=== PATIENT | female | born 1945 | race Caucasian/White ===

== ENCOUNTER → 2017-07-22 08:09 | Outpatient (CLI) | payer MEDICARE, OTHER, SELFPAY ==
--- NOTE | 2017-07-22 | DI.MRI.S_ITS ---
PROCEDURE: MR KNEE RT WO CON INDICATIONS: Right knee medial meniscus tear TECHNIQUE: Noncontrast sagittal PD fast spin echo and T2 fast spin echo with fat saturation, sagittal 3-D FLASH with fat saturation; coronal T1 spin echo and PD fast spin echo with fat saturation, and axial PD fast spin echo with fat saturation through the knee. COMPARISON: [facility], CR, XR KNEE RT 3V, 07/03/2017, 14:13. FINDINGS: Image quality: Excellent. Menisci: Amorphous high signal intensity within the lateral meniscal body is present, with inferior articular surface extension, indicating degenerative tearing. Medial meniscus demonstrates intrameniscal amorphous high signal intensity within the body and posterior horn, without articular surface extension, consistent with degeneration. Cruciate ligaments: The anterior and posterior cruciate ligaments appear intact. Medial structures: The medial collateral ligament appears intact. The posterior oblique ligament, semimembranosus tendon insertions, oblique popliteal ligament, and meniscocapsular junction appear intact. Visualized portions of the pes anserinus tendons appear normal. No abnormal bursal fluid. Lateral structures: The lateral collateral ligament, long and short heads of the biceps femoris tendon appear intact. The popliteus tendon appears normal; the popliteofibular ligament appears intact. The posterosuperior and anteroinferior popliteomeniscal fascicles appear intact. The arcuate and fabellofibular ligaments appear intact, on either side of the lateral inferior geniculate artery. Iliotibial band appears normal. Anterior structures: The quadriceps and patellar tendons appear intact. Patellar alignment is normal. No femoral trochlear dysplasia or ventral trochlear prominence. No edema in the infrapatellar fat pad. Bones and cartilage: No bone marrow contusions or fractures. There is no MRI correlate for the region of cortical irregularity involving the medial femoral trochlea, nor the adjacent patella, seen by plain film examination. Severe diffuse articular cartilage loss overlies the medial and lateral patellar facets. Intraosseous ganglia within the lateral patellar facet are present. Joint space: There is physiologic knee joint fluid. Trace Johnson's cyst. Normal appearing synovial plicae are incidentally noted. IMPRESSION: 1. No MRI correlate for the region of cortical irregularity involving the medial femoral trochlea, nor the adjacent patella. 2. Patellofemoral compartment osteoarthritis with associated articular cartilage loss. 3. Trace Johnson's cyst. 4. Degenerative tearing of lateral meniscus. Dictated by: Brice Orozco M.D. on 07/22/2017 at 10:32 Approved by: Brice Orozco M.D. on 07/22/2017 at 10:40
== END ==
PROVIDERS: Family Provider Internal Medicine; PCP Internal Medicine; Visit Provider Orthopaedic Surgery
DX: M17.11 Unilateral primary osteoarthritis, right knee (principal); M71.21 Synovial cyst of popliteal space [Baker], right knee
CPT/HCPCS: 73721

== ENCOUNTER → 2017-11-12 08:10 | Outpatient (CLI) | payer MEDICARE, OTHER, SELFPAY ==
[2017-11-12 09:13] LABS: Add Manual Diff / Slide Review NO; Basophils Percent Auto 0.7 % (0-2); Eosinophils Percent Auto 2.8 % (2-4); Hematocrit 41.3 % (36-46); Hemoglobin 14.3 g/dL (12.0-16.0); Lymphocytes Percent Auto 36.7 % (25-40); Mean Corpuscular HGB Conc 34.7 % (30-36); Mean Corpuscular Hemoglobin 32.6 PG (26-34); Monocytes Percent Auto 5.9 % (3-14); Neutrophils Absolute Auto 2900 /uL (3000-5900); Neutrophils Percent Auto 53.9 % (50-75); Platelet Count 237 X10^3/uL (150-400); Red Blood Cell Count 4.39 X10^6/uL (4.0-5.2); Red Cell Distribution Width 13.4 % (11.6-14.8); White Blood Cell Count 5.4 X10^3/uL (4.5-11.0)
[2017-11-12 09:19] LABS: Alanine Aminotransferase 30 IU/L (9-52); Albumin 4.6 g/dL (3.5-5.0); Albumin Globulin Ratio 1.8 (1.0-2.8); Alkaline Phosphatase 63 U/L (38-126); Aspartate Aminotransferase 24 IU/L (14-36); BUN Creatinine Ratio 17.5 (6-22); Bilirubin Total 0.8 mg/dL (0.2-1.3); Blood Urea Nitrogen 14 mg/dL (7-17); Calcium 9.7 mg/dL (8.4-10.2); Carbon Dioxide 27 mmol/L (22-32); Chloride 106 mmol/L (98-107); Cholesterol 256 mg/dL (140-199); Estimated Glomerular Filt Rate > 60.0 mL/min (>60); Globulin 2.6 g/dL (1.7-4.1); Glucose 107 mg/dL (80-110); HDL Cholesterol 59 mg/dL (40-60); HEMOLYSIS < 15 (0-50); LDL Cholesterol Calculated 174 mg/dL (<100); Sodium 145 mmol/L (137-145); Total Protein 7.2 g/dL (6.3-8.2); Triglycerides 117 mg/dL (35-150)
[2017-11-12 09:23] LABS: C-Reactive Protein Quant < 0.5 mg/dL (<1.0)
[2017-11-12 09:24] LABS: Rheumatoid Factor < 8.6 IU/mL (<12.0)
[2017-11-12 09:39] LABS: Erythrocyte Sedimentation Rate 3 MM/HR (0-20)
[2017-11-12 10:00] LABS: Thyroid Stimulating Hormone 1.27 uIU/mL (0.47-4.68)
[2017-11-14 17:23] LABS: ANA Screen, IFA Negative (Negative)
[2017-11-15 10:05] LABS: Arsenic 10 mcg/L (< 23); Lead, Blood 2 mcg/dL (< 5)
[2017-11-18 12:57] LABS: Mercury, Blood < 2
== END ==
PROVIDERS: PCP Internal Medicine; Visit Provider Internal Medicine
DX: R03.0 Elevated blood-pressure reading, without diagnosis of hypertension (principal); R29.898 Other symptoms and signs involving the musculoskeletal system; Z86.69 Personal history of other diseases of the nervous system and sense organs
CPT/HCPCS: 36415; 80053; 80061; 83825; 84443; 85025; 85651; 86038; 86140; 86430

== ENCOUNTER → 2017-12-02 09:29 | Outpatient (CLI) | payer MEDICARE, OTHER, SELFPAY ==
--- NOTE | 2017-12-02 | DI.MG.S_ITS ---
BILATERAL DIGITAL SCREENING MAMMOGRAM 3D/2D WITH CAD: 12/02/2017 CLINICAL: Routine screening. Family history of breast cancer. Comparison is made to exams dated: 11/21/2016 mammogram, 07/05/2015 mammogram, and 04/26/2014 mammogram - [facility]. There are scattered fibroglandular elements in both breasts. Current study was also evaluated with a Computer Aided Detection (CAD) system. No significant masses, calcifications, or other findings are seen in either breast. There has been no significant interval change. IMPRESSION: NEGATIVE There is no mammographic evidence of malignancy. A 1 year screening mammogram is recommended.(12/03/2018) This exam was interpreted at Station ID: [id number]. NOTE: For mammograms, a report in lay terms will be sent to the patient. Approximately 15% of breast malignancies will not be visualized mammographically. In the management of a palpable breast mass, a negative mammogram must not discourage biopsy of a clinically suspicious lesion. Electronically Signed By: Sebastian trujillo/maurice:12/02/2017 11:03:35 letter sent: Normal Exam ACR BI-RADS Category 1: Negative 3341F
== END ==
PROVIDERS: Family Provider Internal Medicine; PCP Internal Medicine; Visit Provider Internal Medicine
DX: Z12.31 Encounter for screening mammogram for malignant neoplasm of breast (principal); Z80.3 Family history of malignant neoplasm of breast
CPT/HCPCS: 77063; 77067

== ENCOUNTER → 2018-03-03 15:14 | Outpatient (CLI) | payer MEDICARE, OTHER, SELFPAY ==
--- NOTE | 2018-03-03 | DI.RAD.S_ITS ---
PROCEDURE: XR LUMBAR SPINE 2-3V INDICATIONS: CERVICAL STENOSIS TECHNIQUE: 3 views of the lumbar spine were acquired. COMPARISON: [facility], CT, ABDOMEN W AND WO PELVIS W, 05/04/2014, 11:41. [facility], CR, THORACIC SPINE 3 VIEWS, 11/30/2009, 10:22. FINDINGS: Bones: 5 [id number] vertebrae are present. Suspected transitional S1 with prominent S1-S2 disc. There is mild levocurvature. No vertebral body compression fractures. No suspicious bony lesions. Degenerative disc disease is present, moderate to severe at T12-L1, mild at L1-L2, L2-L3, L5 and L5 and L5-S1. There is a cyst also posi at L4-L5 and L5-S1. Soft tissues: Overlying bowel gas pattern is normal. No suspicious soft tissue calcifications. There are multiple gallstones. IMPRESSION: 1. Suspect transitional anatomy with prominent S1-S2 disc. 2. Degenerative disc and facet disease. 3. Cholelithiasis. Dictated by: Yosef Lynch M.D. on 03/03/2018 at 17:17 Approved by: Yosef Lynch M.D. on 03/03/2018 at 17:21
--- NOTE | 2018-03-03 | DI.RAD.S_ITS ---
PROCEDURE: XR CERVICAL SPINE 2V OR 3V INDICATIONS: CERVICAL STENOSIS TECHNIQUE: 3 view(s) of the cervical spine were acquired. COMPARISON: [facility], , THORACIC SPINE 3 VIEWS, 11/30/2009, 10:22. FINDINGS: Bones: No fractures or dislocations to the C7 level. Odontoid view is suboptimal. No suspicious bony lesions. There is moderate degenerative disc disease at C3-C4, C4-C5, C5-C6 and C6-C7. Bilateral facet arthropathy, severe at C3-C4 and C4-C5 on the left, [id number] at multiple other levels. Soft tissues: No prevertebral soft tissue swelling. IMPRESSION: Degenerative disc and facet disease in cervical spine as described. Dictated by: Yosef Lynch M.D. on 03/03/2018 at 17:36 Approved by: Yosef Lynch M.D. on 03/03/2018 at 17:38
== END ==
PROVIDERS: Family Provider Internal Medicine; PCP Internal Medicine; Visit Provider Family Medicine
DX: M48.02 Spinal stenosis, cervical region (principal); M51.36 Other intervertebral disc degeneration, lumbar region; K80.20 Calculus of gallbladder without cholecystitis without obstruction; M50.31 Other cervical disc degeneration, high cervical region; M47.812 Spondylosis without myelopathy or radiculopathy, cervical region
CPT/HCPCS: 72040; 72100

== ENCOUNTER → 2018-04-29 10:17 | Outpatient (CLI) | payer MEDICARE, OTHER, SELFPAY ==
[2018-04-29 11:33] LABS: Creatine Kinase 102 U/L (30-135)
[2018-04-29 11:34] LABS: C-Reactive Protein Quant < 0.5 mg/dL (<1.0)
[2018-04-29 12:07] LABS: Thyroid Stimulating Hormone 0.76 uIU/mL (0.47-4.68)
== END ==
PROVIDERS: Family Provider Internal Medicine; PCP Internal Medicine; Visit Provider Physical Medicine & Rehabilitation
DX: R53.1 Weakness (principal); M25.561 Pain in right knee
CPT/HCPCS: 36415; 82550; 84443; 86140

== ENCOUNTER → 2018-05-28 13:39 | Outpatient (CLI) | payer MEDICARE, OTHER, SELFPAY ==
--- NOTE | 2018-05-28 | DI.MRI.S_ITS ---
PROCEDURE: MR STROKE Pre- and post-contrast brain MRI, non-contrast brain MR angiogram, pre- and postcontrast neck MR angiogram INDICATIONS: BILATERAL LEG WEAKNESS TECHNIQUE: Brain: Noncontrast axial T1 spin echo, axial T2 fast spin echo, sagittal and axial FLAIR, coronal T2 fast spin echo, axial gradient echo, axial diffusion and ADC through the brain. After the administration of contrast, axial 3D VIBE of the cranial vasculature and brain. Brain MRA: Non-contrast 3-D time of flight MR angiogram, with multiple swypfet-bzigeoqcu-qypiprmzbx (MIP) reformats performed. Neck MRA: Axial and sagittal TruFISP through the neck. Coronal dynamic MR angiogram during administration of contrast in the arterial and venous phases, with 3-dimenstional pjnmwuk-hjspygdlq-mqzjjwnrzo (MIP) reformats constructed from subtraction images. COMPARISON: None. FINDINGS: Image quality: Excellent. BRAIN: CSF spaces: Ventricles are normal in size and shape. Basal cisterns are patent. No extra-axial fluid collections. Brain: No intracranial bleeds or mass effects. Barth-white matter interface is normal. Brain parenchymal volume loss can be seen. Scattered foci of T2 and hyperintensity can be seen within the periventricular and deep white matter. Diffusion weighted images show no acute ischemic insults. Brainstem appears normal. Normal intravascular flow voids are present. No abnormal intracranial enhancement. Skull and face: Calvarial marrow signal is normal. Orbits appear normal. Sinuses: Sinuses and mastoids are clear. 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 BRAIN MR ANGIOGRAM: Anterior circulation: Intracranial internal carotid arteries are normal in size and enhancement. The flow within the paired anterior cerebral arteries is normal and symmetric. The flow within the middle cerebral arteries is normal and symmetric. The anterior communicating artery is seen. No stenoses, occlusions, or aneurysms. Posterior circulation: The visualized portions of the vertebral arteries demonstrate normal caliber, and join to form a normal appearing basilar artery. There is a prominent left posterior communicating artery seen, with an accompanying diminutive left P1 segment. This is attributed to a type origin of the left posterior cerebral artery, which is considered to be a normal developmental variant of typically no clinical consequence. The flow within the posterior cerebral arteries is normal and symmetric. No stenoses, occlusions, or aneurysms. NECK MR ANGIOGRAM: Carotids: Incidental note is made of a common origin of the right brachiocephalic artery and the left common carotid artery (bovine type arch). This is considered to be a developmental variant of no clinical consequence. The origins of the common carotid arteries appear patent. The calibers and courses of both common carotid arteries are normal. The bifurcation regions appear normal bilaterally. The internal carotid arteries demonstrate normal course and caliber. Posterior circulation: The origins of the vertebral arteries appear patent. More superior portions of both vertebral arteries demonstrate normal course and caliber, and join to form a normal appearing basilar artery. Miscellaneous: Subclavian arteries appear patent. Pre-contrast images through the neck show no soft tissue abnormalities. IMPRESSION: BRAIN MRI: No findings of acute or subacute infarction can be seen. Note is made of age-appropriate brain parenchymal volume loss and chronic small vessel ischemic changes. BRAIN MR ANGIOGRAM: No significant intracranial arterial abnormality is seen. NECK MR ANGIOGRAM: Within the arteries of the neck, no hemodynamically significant stenosis can be seen. Bovine type aortic branching pattern incidentally noted. Dictated by: Selvin Queen M.D. on 05/28/2018 at 14:14 Approved by: Selvin Queen M.D. on 05/28/2018 at 14:18
== END ==
PROVIDERS: Family Provider Internal Medicine; PCP Internal Medicine; Visit Provider Internal Medicine
DX: R29.898 Other symptoms and signs involving the musculoskeletal system (principal)
CPT/HCPCS: 70553; A9579

== ENCOUNTER → 2018-12-16 17:25 | Outpatient (CLI) | payer MEDICARE, OTHER, SELFPAY ==
--- NOTE | 2018-12-16 | DI.MG.S_ITS ---
BILATERAL DIGITAL SCREENING MAMMOGRAM 3D/2D WITH CAD: 12/16/2018 CLINICAL: Routine screening. Family history of breast cancer. Comparison is made to exams dated: 12/02/2017 mammogram, 11/21/2016 mammogram, 07/05/2015 mammogram, 04/26/2014 mammogram, 03/30/2013 mammogram, and 03/01/2012 mammogram - [facility]. The tissue of both breasts is heterogeneously dense. This may lower the sensitivity of mammography. Current study was also evaluated with a Computer Aided Detection (CAD) system. No significant masses, calcifications, or other findings are seen in either breast. There has been no significant interval change. IMPRESSION: NEGATIVE There is no mammographic evidence of malignancy. A 1 year screening mammogram is recommended. This exam was interpreted at Station ID: [id number]. NOTE: For mammograms, a report in lay terms will be sent to the patient. Approximately 15% of breast malignancies will not be visualized mammographically. In the management of a palpable breast mass, a negative mammogram must not discourage biopsy of a clinically suspicious lesion. Electronically Signed By: Damion neri/maurice:12/17/2018 19:27:18 letter sent: Normal Exam ACR BI-RADS Category 1: Negative 3341F
== END ==
PROVIDERS: Family Provider Internal Medicine; PCP Internal Medicine; Visit Provider Internal Medicine
DX: Z12.31 Encounter for screening mammogram for malignant neoplasm of breast (principal); Z80.3 Family history of malignant neoplasm of breast
CPT/HCPCS: 77063; 77067

== ENCOUNTER → 2019-08-14 14:43 | Outpatient (CLI) | payer MEDICARE, OTHER, SELFPAY ==
[2019-08-15 09:02] LABS: COVID19 Sendout NOT DETECTED (Not Detect)
== END ==
PROVIDERS: Family Provider Internal Medicine; PCP Internal Medicine; Visit Provider Physician Assistant
DX: Z01.818 Encounter for other preprocedural examination (principal)
CPT/HCPCS: 87635

== ENCOUNTER 2019-08-17 06:31 | Day surgery (SDC) | payer MEDICARE, OTHER, SELFPAY ==
--- NOTE | 2019-08-16 19:12 | PM.PREOP ---
Pre-operative Note COVID-19 COVID-19 status: Negative Interval Note History & Physical reviewed/Exam performed by Physician: Yes Changes to H&P: No
[2019-08-17] MEDS: PROPARACAINE 0.5% OPHTH SOL 2 DROPS EYE-OP (07:13)
[2019-08-17] MEDS: CATARACT EYE COMPOUND (10 DROPS/SYRINGE) 3 DROPS EYE-OP (07:15)
[2019-08-17 07:16] VITALS: BP 153/87; PULSE 72; RESP 14; TEMP 36.4; O2SAT 97; BMI 28.3
--- NOTE | 2019-08-17 07:20 | PM.OP.1 ---
Operative Date/Time/Diagnoses Date of procedure: 08/17/19 Time of procedure: 07:45 Procedure & Clinicians Procedure: Preoperative diagnoses: 1. Advanced nuclear sclerotic and cortical cataract 2. Astigmatism which is to be corrected with a toric intraocular lens implant. 3. Hypertension 4. 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 Cataract removal with phacoemulsification with toric posterior chamber intraocular lens implant placed. Procedure: Phacoemulsification with posterior chamber toric intraocular lens implant. Surgeon: Sophie Ramirez MD Complications: None Specimen: None Implant: [id number] [place] 069 Blood loss: None Anesthesia: Retrobulbar with monitored standby Description of procedure: Patient presents with a complaint of decreased vision due to cataract which is affecting activities of daily living. The patient wants surgery to improve vision and astigmatism. The patient was taken to the operating room and proparacaine drops placed. Indelible ink mckeon were placed at the 90 and 180 degree meridian. The patient was placed on the operating room table and given IV sedation. A retrobulbar block insert consisting of 6 cc of 2% xylocaine without epinephrine mixed half and half with 0.5% Marcaine with 1 cc of hyaluronidase added is placed between the medial and lateral 1/3 of the inferior orbital rim. The eye is manually massaged for 30 sec, prepped using Betadine solution, and draped in the usual sterile fashion. Temporal approach was made, a 1 mm side-port incision was made 90? from the proposed corneal wound. Phenylephrine 1.5% mixed with 1% xylocaine 0.2 cc was placed into the anterior chamber. Viscoat followed by Pam was then placed. A 2.6 mm clear incision with a 2.6 mm blade was placed at the 170 degree meridian. A 360 degree capsulorrhexis style capsulotomy was then performed with a cystitome needle on a Healon. Hydrodelineation and hydrodissection were performed. The phacoemulsification unit is introduced, and sculpting used to groove the central lens. It is then removed in chopping mode. Epi nucleus is removed with epinuclear mode and irrigation aspiration was used to remove the peripheral cortex. The posterior capsule is polished. The intraocular lens is selected, inspected, power confirmed, and placed in the posterior chamber at the desired meridian of 69?. The pupil was not constricted. The wound was stromally hydrated and tested for leaks, there was none and it was left sutureless. Vigamox 0.1 cc was placed into the anterior chamber. Kenalog 0.2 cc was placed in the superior subconjunctival space. A drop of antibiotic and was placed and the eye was patched and shielded. The patient was stable and returned to the recovery room in excellent condition. Dictated by: Sophie Ramirez MD Copy to: [facility] Same procedure as scheduled: Yes
[2019-08-17] MEDS: MOXIFLOXACIN INJ 5 MG/ML VIAL EYE-OP (08:08)
[2019-08-17] MEDS: LIDOCAINE 2% 4 ML, BUPIVACAINE 0.5% (PF) 4 ML, HYALURONIDASE 150 UNIT INJ (08:08)
[2019-08-17] MEDS: TRIAMCINOLONE 50 MG/5 ML VIAL INJ (08:11)
[2019-08-17] MEDS: BALANCED SALT IRRIG SOLN NO.2 500 ML, EPINEPHrine 1 MG IRR (08:11)
[2019-08-17] MEDS: PHENYLEPHRINE/LIDOCAINE VIAL (OR) 0.2 ML EYE-OP (08:12)
[2019-08-17] MEDS: HYALURONATE SODIUM 10 MG/ML SYRINGE INJ (08:12)
[2019-08-17] MEDS: ERYTHROMYCIN OPHTH 1 GM OINT 1 APPLIC EYE-LEFT (08:13)
[2019-08-17] MEDS: CHONDROIDTIN/SOD HYALURONATE 1.05 ML SYRINGE INTRAOCULA (08:13)
[2019-08-17 08:39] VITALS: BP 141/86; PULSE 67; RESP 16; TEMP 36.7; O2SAT 98
== END 2019-08-17 08:47 | disposition home or self-care (01) ==
LOC: OR 06:35
PROVIDERS: Family Provider Internal Medicine; PCP Internal Medicine; Referring Provider Ophthalmology; Visit Provider Ophthalmology
PROC: (CPT 66984; principal; 2019-08-17 07:45)
DX: H25.12 Age-related nuclear cataract, left eye (principal); H40.013 Open angle with borderline findings, low risk, bilateral; H53.2 Diplopia; I10 Essential (primary) hypertension; E78.5 Hyperlipidemia, unspecified; H52.202 Unspecified astigmatism, left eye
CPT/HCPCS: 66984; J0171; J2250; J2704; J3301; J3470; V2787

== ENCOUNTER → 2019-08-19 14:37 | Outpatient (CLI) | payer MEDICARE, OTHER, SELFPAY ==
--- NOTE | 2019-08-19 14:41 | DI.US.S_ITS ---
PROCEDURE: US PELVIC COMPLETE INDICATIONS: LOWER ABDOMINAL PAIN TECHNIQUE: Real-time scanning was performed of the pelvic organs, with image documentation. Additional endovaginal scanning was necessary due to incomplete visualization of the adnexal and endometrial structures by transabdominal scanning. COMPARISON: [facility], US, PELVIC COMPLETE, 11/05/2015, 7:48. FINDINGS: Transabdominal scanning: Limited scanning through the kidneys shows no hydronephrosis. No pathologic free abdominal or pelvic fluid. Endovaginal scanning: Uterus: Uterus is normal in size at 6.5 x 2.8 x 3.0 cm. The endometrium measures 9.1 mm in combined thickness. Microcystic changes of the endometrial complex which is dynamic. 11 mm anterior fibroid. Ovaries: Ovaries are not identified. No adnexal masses seen. IMPRESSION: 1. Thickened endometrial complex with microcystic changes and the endometrium is dynamic. Recommend short-term followup pelvic ultrasound in 1 month to assess for temporal resolution and thinning. If the thickening and microcystic changes persists, recommend endometrial biopsy. Dictated by: Jonathan POZO Interpreted: Hugo Hammond MD on 08/19/2019 at 16:07 Approved by: Hugo Hammond M.D. on 08/22/2019 at 14:26
--- NOTE | 2019-08-19 14:41 | DI.US.S_ITS ---
PROCEDURE: US ABDOMEN COMPLETE INDICATIONS: LOWER ABDMOINAL PAIN AND CRAMPING TECHNIQUE: Real-time scanning was performed of the abdominal and retroperitoneal organs, with image documentation. COMPARISON: None. FINDINGS: Liver: Liver is diffusely increased in echogenicity. No focal hepatic abnormalities identified. Normal hepatic size. Gallbladder: Multiple gallstones present. No gallbladder wall thickening or pericholecystic fluid. Negative sonographic Coulter sign. Biliary ducts: Intrahepatic bile ducts are non-dilated. Extrahepatic bile duct caliber measures 5.0 mm. Normal is 6-7 mm or less in diameter, or 10 mm or less post-cholecystectomy. Pancreas: Visualized portions of the pancreas are sonographically normal. Spleen: Spleen is normal in size and homogeneous in echotexture. Kidneys: Kidneys are normal in size and echotexture. Right kidney measures 11.4 cm long; left kidney measures 11.8 cm long. No hydronephrosis or nephrolithiasis. No solid masses. Aorta: Visualized aorta is normal in caliber at less than 3 cm. Iliacs: Proximal common iliac arteries are normal in caliber at less than 2.5 cm. IVC: Intrahepatic inferior vena cava is patent. Miscellaneous: No free abdominal fluid. IMPRESSION: 1. Cholelithiasis without acute cholecystitis. If sonographically occult acute cholecystitis is suspected, nuclear medicine HIDA scan could be performed for further evaluation. 2. Increased hepatic echogenicity noted possibly related to hepatic steatosis but other sources of hepatocellular disease cannot be excluded. Recommend clinical correlation. Dictated by: Jonathan Betancourt A Interpreted: Hugo Hammond MD on 08/19/2019 at 16:12 Approved by: Hugo Hammond M.D. on 08/22/2019 at 14:27
== END ==
PROVIDERS: Family Provider Internal Medicine; PCP Internal Medicine; Referring Provider Internal Medicine; Visit Provider Internal Medicine
DX: R10.30 Lower abdominal pain, unspecified (principal); R93.89 Abnormal findings on diagnostic imaging of other specified body structures; D25.9 Leiomyoma of uterus, unspecified; K80.20 Calculus of gallbladder without cholecystitis without obstruction
CPT/HCPCS: 76700; 76830; 76856

== ENCOUNTER → 2019-08-28 14:57 | Outpatient (CLI) | payer MEDICARE, OTHER, SELFPAY ==
[2019-08-29 08:37] LABS: COVID19 Sendout Not Detected (Not Detect)
== END ==
PROVIDERS: Family Provider Internal Medicine; PCP Internal Medicine; Visit Provider Nurse Practitioner
DX: Z01.812 Encounter for preprocedural laboratory examination (principal)
CPT/HCPCS: 87635

== ENCOUNTER 2019-08-31 08:19 | Day surgery (SDC) | payer MEDICARE, OTHER, SELFPAY ==
--- NOTE | 2019-08-31 07:28 | PM.PREOP ---
Pre-operative Note COVID-19 COVID-19 status: Negative Interval Note History & Physical reviewed/Exam performed by Physician: Yes Changes to H&P: No
--- NOTE | 2019-08-31 07:28 | PM.OP.1 ---
Operative Date/Time/Diagnoses Date of procedure: 08/31/19 Time of procedure: 09:45 Procedure & Clinicians Procedure: Preoperative diagnoses: 1. Right nuclear sclerotic and cortical cataract. 2. Left amblyopia and anisometropia. 3. Diplopia requiring prism glasses Postoperative diagnoses: 1. Cataract removed by phacoemulsification with placement of posterior chamber intraocular lens. Procedure: Phacoemulsification with posterior chamber intraocular lens implant Surgeon: Sophie Ramirez MD Complications: None Specimen: None Implant: [id number] Blood loss: None Anesthesia: Retrobulbar with monitored standby Description of procedure: Patient presents with a complaint of decreased vision due to cataract which is affecting activities of daily living. This is her dominant eye and has reduced distance and near vision as she has refractive amblyopia in her other eye which has had surgery. She also has double vision since her left eye surgery if she cannot wear her current glasses. She notices decreased distance especially in chooses distance target. The patient wants surgery to improve vision with a distance implant chosen. The patient was taken to the operating room and given IV sedation. A retrobulbar block consisting of 6 cc of 2% xylocaine without epinephrine mixed half and half with 0.5% Marcaine with 1 cc of hyaluronidase added is placed between the medial and lateral 1/3 of the inferior orbital rim. The eye is manually massaged for 30 sec, prepped using Betadine solution, and draped in the usual sterile fashion. Temporal approach was made, a 1 mm side-port incision was made 90? from the proposed clear corneal incision position. Phenylephrine 1.5% mixed with 1% xylocaine 0.2 cc was placed into the anterior chamber. Viscoat followed by Pam was then placed. A 2.6 mm clear incision with a 2.6 mm blade was placed. A 360 degree capsulorrhexis style capsulotomy was then performed with a cystitome needle on a Healon. Hydrodelineation and hydrodissection were performed. The phacoemulsification unit is introduced, and sculpting notice used to groove the central lens. It is then removed in chopping mode. Epi nucleus is removed with epinuclear mode and irrigation aspiration was used to remove the peripheral cortex. The posterior capsule is polished. The intraocular lens is selected, inspected, power confirmed, and placed in the posterior chamber. The wound was stromally hydrated and tested for leaks, there was none and it was left sutureless. Vigamox 0.1 cc was placed into the anterior chamber. Kenalog 0.2 cc was placed in the superior subconjunctival space. A drop of antibiotic and was placed and the eye was patched and shielded. The patient was stable and returned to the recovery room in excellent condition. Dictated by: Sophie Ramirez MD Copy to: [facility] Same procedure as scheduled: Yes
[2019-08-31] MEDS: PROPARACAINE 0.5% OPHTH SOL 2 DROPS EYE-OP (08:59)
[2019-08-31] MEDS: CATARACT EYE COMPOUND (10 DROPS/SYRINGE) 3 DROPS EYE-OP (09:00)
[2019-08-31 09:08] VITALS: BP 127/80; PULSE 64; RESP 16; O2SAT 99; BMI 28.0
[2019-08-31] MEDS: MOXIFLOXACIN INJ 5 MG/ML VIAL EYE-OP (10:09)
[2019-08-31] MEDS: CHONDROIDTIN/SOD HYALURONATE 1.05 ML SYRINGE INTRAOCULA (10:09)
[2019-08-31] MEDS: HYALURONATE SODIUM 10 MG/ML SYRINGE INJ (10:09)
[2019-08-31] MEDS: PHENYLEPHRINE/LIDOCAINE VIAL (OR) 0.2 ML EYE-OP (10:10)
[2019-08-31] MEDS: TRIAMCINOLONE 50 MG/5 ML VIAL INJ (10:10)
[2019-08-31] MEDS: LIDOCAINE 2% 4 ML, BUPIVACAINE 0.5% (PF) 4 ML, HYALURONIDASE 150 UNIT INJ (10:11)
[2019-08-31] MEDS: BALANCED SALT IRRIG SOLN NO.2 500 ML, EPINEPHrine 1 MG IRR (10:12)
[2019-08-31] MEDS: ERYTHROMYCIN OPHTH 1 GM OINT 1 APPLIC EYE-RIGHT (10:13)
== END 2019-08-31 10:50 | disposition home or self-care (01) ==
LOC: OR 08:20
PROVIDERS: Family Provider Internal Medicine; PCP Internal Medicine; Referring Provider Internal Medicine; Visit Provider Ophthalmology
PROC: (CPT 66984; principal; 2019-08-31 09:45)
DX: H25.11 Age-related nuclear cataract, right eye (principal); I10 Essential (primary) hypertension; E78.5 Hyperlipidemia, unspecified; H53.2 Diplopia
CPT/HCPCS: 66984; J0171; J2250; J2704; J3010; J3301; J3470

== ENCOUNTER → 2019-09-19 15:18 | Outpatient (CLI) | payer MEDICARE, OTHER, SELFPAY ==
[2019-09-20 20:29] LABS: COVID19 Sendout Not Detected (Not Detect)
== END ==
PROVIDERS: Family Provider Internal Medicine; PCP Internal Medicine; Visit Provider Physician Assistant
DX: Z01.812 Encounter for preprocedural laboratory examination (principal)
CPT/HCPCS: 87635

== ENCOUNTER 2019-09-22 11:56 | Day surgery (SDC) | payer MEDICARE, OTHER, SELFPAY ==
[2019-09-20 08:33] VITALS: BMI 29.2
--- NOTE | 2019-09-22 | PATH_ITS ---
[facility] Accession Number: [id number] . 01 Material submitted: . endometrium - ENDOMETRIAL POLYPS . 01 Clinical history: . PELVIC . 02 Diagnosis: Endometrial Polyps: Benign endometrial polyps with features of cystic atrophy; negative for glandular hyperplasia, cytologic atypia or malignancy. MRV 09/26/2019 1016 Local . 02 Electronically signed: . Jacqueline Oneill MD, Pathologist NPI- [id number] . 01 Gross description: . ENDOMETRIAL POLYPS: Received in formalin are minute fragments of mucoid and hemorrhagic material measuring 2.0 x 1.5 x 0.6 cm in aggregate. Submitted in toto in 2 cassettes. /OMAIRA 09/23/2019 0121 Local . 02 Pathologist provided ICD-10: N85.00, N88.2 . 02 CPT . [id number] Performed at: 01 [facility] [address] [place] [id number] MD Sebastian Britton MD Phone: [phone] Performed at: [address] [facility] [address] [place], [place] [id number] MD Mel Bustos MD Phone: [phone]
--- NOTE | 2019-09-22 09:50 | PM.HP.1 ---
History of Present Illness History of Present Illness Date Patient Seen: 09/22/19 Time Patient Seen: 13:10 Chief complaint: PELVIC Narrative: Patient is a 73-year-old 1 para 0 with endometrial hyperplasia by ultrasound, and cervical stenosis Patient History Medical History (Updated 09/20/19 @ 08:43 by Luz Maria Costello RN) Allergic rhinitis (Chronic) Foot pain, bilateral (Chronic) GERD (gastroesophageal reflux disease) (Chronic) History of hysteroscopy (Acute) Hyperlipidemia (Chronic) Hypertension (Chronic) Sarcoma (Acute) Squamous cell skin cancer (Chronic) Surgical History (Updated 09/20/19 @ 08:42 by Luz Maria Costello RN) Anesthesia (Resolved) H/O cataract removal with insertion of prosthetic lens (Acute) History of third molar tooth extraction Hx of right cataract extraction (Acute 08/2019) Status post surgery (06/16/14) Status post surgery (11/16/15) Status post tonsillectomy and adenoidectomy Family & Social History Family History (Updated 08/11/17 @ 14:05 by Neyda Abraham) Father Hypertension Grandmother Colon cancer Osteoporosis Mother Age: 99 Osteoarthritis Family/Other Breast cancer Grandfather No problems noted. Social History: household members spouse Tobacco & Substance use: Smoking Status Never smoker alcohol intake current alcohol intake frequency 0-2 drinks per day Substance Use Type does not use Meds Home Medications and Allergies Home Medications Medication Instructions Recorded Confirmed Type cholecalciferol (vitamin D3) 2,000 iu PO Q DAY #0 04/03/11 09/22/19 History [Vitamin D3] omega-3 acid ethyl esters [Lovaza] 1 gm PO QDAY #0 07/03/12 09/22/19 History calcium carbonate 200 mg calcium 200 mg PO TID PRN tab 08/12/17 09/22/19 History (500 mg) chewable tablet cranberry extract 650 mg capsule 1,300 mg PO DAILY 08/12/17 09/22/19 History fexofenadine 180 mg tablet 180 mg PO DAILY 08/12/17 09/22/19 History glucosamine wei 2KCl-chondroit 1 tab PO DAILY 08/12/17 09/22/19 History ibuprofen 200 mg tablet 200 mg PO Q4-6H PRN 08/12/17 09/22/19 History multivitamin 1 tab PO DAILY 08/12/17 09/22/19 History hydrochlorothiazide 12.5 mg PO DAILY 08/17/19 09/22/19 History acetaminophen 500 mg PO Q6H PRN 08/31/19 09/22/19 History loratadine [Claritin] 10 mg PO DAILY PRN 08/31/19 09/22/19 History bromfenac [Prolensa] 1 drp EYE-RIGHT BID 09/22/19 09/22/19 History prednisolone acetate 1 drp EYE-RIGHT BID 09/22/19 09/22/19 History Allergies Allergy/AdvReac Type Severity Reaction Status Date / Time albuterol [ALBUTEROL] Allergy Mild SORE THROAT Verified 09/22/19 12:20 amoxicillin [AMOXICILLIN] Allergy Mild HIVES Verified 09/22/19 12:20 atorvastatin [ATORVASTATIN] Allergy Mild DIARRHEA Verified 09/22/19 12:20 clindamycin [CLINDAMYCIN] Allergy Mild RASH Verified 09/22/19 12:20 pravastatin [PRAVASTATIN] Allergy Mild DIARRHEA Verified 09/22/19 12:20 simvastatin [SIMVASTATIN] Allergy Mild DIARRHEA Verified 09/22/19 12:20 Sulfa (Sulfonamide AdvReac Mild Bothers Verified 09/22/19 12:20 Antibiotics) stomach if [SULFA (SULFONAMIDE she ANTIBIOTICS)] doesn't drink a lot of water Exam Vital Signs (past 8 hours): HEENT: No thyromegaly, no anterior cervical or supraclavicular lymphadenopathy. Lungs:Clear to auscultation bilaterally, no wheezes. Cardiovascular: Regular rate and rhythm, no murmurs, rubs, or gallops. Abdomen: No scars. No hepatosplenomegaly. No masses palpable. External genitalia: Normal Vagina: Normal Cervix: Normal Bimanual exam: 7 Week size uterus. Mobile. Rectal: No masses. Assessment & Plan Assessment & Plan narrative: Assessment: 73-year-old 1 para 0 with endometrial hyperplasia on ultrasound, and stenotic cervix Plan: D&C hysteroscopy with possible endometrial ablation The risks, benefits, and alternatives to the procedure were explained to the patient. The risks including bleeding, infection, and uterine perforation. She understands these risks and agrees to proceed. A full par Q was held and consent form was signed. COVID-19 COVID-19 status: Negative Result date/Date tested (Pos, Neg/Pending): 09/19/19 Time Spent With Patient Time with patient: 15-24 minutes
[2019-09-22 12:32] VITALS: BP 153/87; PULSE 79; RESP 16; TEMP 36.6; O2SAT 95; BMI 28.6
[2019-09-22] MEDS: LACTATED RINGERS 1,000 ML 100 ML IV (12:46)
--- NOTE | 2019-09-22 13:00 | SUR.OPER ---
Lithotomy on padded OR bed, head on pillow, arms secured on padded arm boards at <90 degrees abduction. Legs secured in padded yellow fins stirrups.
--- NOTE | 2019-09-22 13:12 | PM.PREOP ---
Pre-operative Note COVID-19 COVID-19 status: Negative Result date/Date tested (Pos, Neg/Pending): 09/19/19 Interval Note History & Physical reviewed/Exam performed by Physician: Yes Changes to H&P: No H&P completed within 30 days and has changed as indicated here:: 09/22/19
[2019-09-22 14:15] VITALS: BP 153/85; PULSE 65; RESP 10; TEMP 37; O2SAT 96
--- NOTE | 2019-09-22 14:16 | PM.GYNOP.1 ---
Operative Date/Time/Diagnoses Date of procedure: 09/22/19 Time of procedure: 14:16 Pre-op diagnosis: Endometrial hyperplasia by ultrasound Cervical stenosis Post-op diagnosis: same Procedure & Clinicians Procedure: Procedures Operation Date: 09/22/19 13:30 Actual Procedures Side Surgeon p Hysteroscopy D&C,POLYPECTOMY, ENDOMETRIAL ABLATION WITH CAUTERY Not Applicable Amanda Milligan MD Indications: Endometrial hyperplasia by ultrasound Cervical stenosis Surgeon: Amanda Milligan Anesthesia Type: General (LMA) Operative Notes Findings: Five week size anteverted uterus Both fallopian tube ostia observed Multiple large polyps in the uterine cavity, smaller polyps originating around the left fallopian tube ostia Closure Type: not applicable Specimen(s): endometrial polyp (Multiple) Estimated blood loss (mL): 20 Blood products transfused: none Procedure in detail: After informed consent was obtained, the patient was taken to the operating room where she was placed in the dorsal supine position. After adequate LMA general anesthesia was achieved, she was placed in the dorsal lithotomy position, and prepped and draped in the usual sterile fashion. A time-out was performed. A bivalve speculum was placed into the vagina and the anterior lip of the cervix was grasped with a single-tooth tenaculum. Cervical os was sequentially dilated to the # 8 Hegar dilator. The hysteroscope passed easily into the endometrial cavity. There was a large polyp almost obscuring the cavity. The hysteroscope was removed. Polyp forceps were used to remove the larger of the polyps. The fluid was changed to sorbitol. The hysteroscope was replaced in the uterus. There were still some small polyps near the left fallopian tube ostia. The hysteroscope was removed. The resectoscope was placed and under direct visualization using 60 cut and 40 cautery, the small polyps were resected. The resectoscope was removed. An attempt was made to perform a NovaSure ablation, but the patient's uterus was too small and the volume was less than recommended for NovaSure use. The resectoscope was passed easily into the endometrial cavity. Using the loop with cautery all of the dalal of the uterus were cauterized including the fundus of the uterus and near the left fallopian tube ostia where the polyps originated. The resectoscope was removed. The single-tooth tenaculum was removed from the anterior lip of the cervix. The bivalve speculum was removed from the vagina. There was less than a 1000 cc difference between fluid in and fluid out. Sponge, lap, and instrument counts were correct x2. The patient tolerated the procedure well, and was taken to PACU in stable condition. Complications: none Post-operative Condition: stable Disposition: PACU Plan for aftercare: Home after recovery
[2019-09-22 14:20] VITALS: BP 147/81; PULSE 70; RESP 10; O2SAT 96
[2019-09-22 14:27] VITALS: BP 153/86; PULSE 63; RESP 12; TEMP 36.5; O2SAT 96
--- NOTE | 2019-09-22 14:39 | SUR.PHASEI ---
Received to PACU at 1415 after general anesthesia. Airway patent, self maintained. Report from Dr Woody and circulating RN.
[2019-09-22 14:40] VITALS: BP 156/83; PULSE 57; RESP 14; TEMP 36.3; O2SAT 96
[2019-09-22 15:16] VITALS: BP 156/78; PULSE 58; RESP 16; TEMP 35.9; O2SAT 96
== END 2019-09-22 15:27 | disposition home or self-care (01) ==
PROVIDERS: Family Provider Internal Medicine; PCP Internal Medicine; Referring Provider Obstetrics & Gynecology; Visit Provider Obstetrics & Gynecology
PROC: 0UDB8ZZ Extraction of Endometrium, Via Natural or Artificial Opening Endoscopic (ICD-10-PCS; CPT 58558; principal; 2019-09-22 13:30)
DX: N85.00 Endometrial hyperplasia, unspecified (principal); I10 Essential (primary) hypertension
CPT/HCPCS: 58563; J1100; J1885; J2250; J2405; J2704; J3010

== ENCOUNTER → 2019-12-23 17:30 | Outpatient (CLI) | payer MEDICARE, OTHER, SELFPAY ==
--- NOTE | 2019-12-23 17:31 | DI.MG.S_ITS ---
BILATERAL DIGITAL SCREENING MAMMOGRAM 3D/2D WITH CAD: 12/23/2019 CLINICAL: Routine screening. Family history of breast cancer. Comparison is made to exams dated: 12/16/2018 mammogram, 12/02/2017 mammogram, and 11/21/2016 mammogram - [facility]. There are scattered fibroglandular elements in both breasts. Current study was also evaluated with a Computer Aided Detection (CAD) system. No significant masses, calcifications, or other findings are seen in either breast. There has been no significant interval change. IMPRESSION: NEGATIVE There is no mammographic evidence of malignancy. A 1 year screening mammogram is recommended. This exam was interpreted at Station ID: [id number]. NOTE: For mammograms, a report in lay terms will be sent to the patient. Approximately 15% of breast malignancies will not be visualized mammographically. In the management of a palpable breast mass, a negative mammogram must not discourage biopsy of a clinically suspicious lesion. Electronically Signed By: Sebastian trujillo/maurice:12/26/2019 07:32:01 letter sent: Normal Exam ACR BI-RADS Category 1: Negative 3341F
== END ==
PROVIDERS: Family Provider Internal Medicine; PCP Internal Medicine; Referring Provider Internal Medicine; Visit Provider Internal Medicine
DX: Z12.31 Encounter for screening mammogram for malignant neoplasm of breast (principal); Z80.3 Family history of malignant neoplasm of breast
CPT/HCPCS: 77063; 77067

== ENCOUNTER → 2021-01-01 07:25 | Outpatient (CLI) | payer MEDICARE, OTHER, SELFPAY ==
--- NOTE | 2021-01-01 | DI.MG.S_ITS ---
BILATERAL DIGITAL SCREENING MAMMOGRAM 3D/2D WITH CAD: 01/01/2021 CLINICAL: Routine screening. Family history of breast cancer. Comparison is made to exams dated: 12/23/2019 mammogram, 12/16/2018 mammogram, and 12/02/2017 mammogram - [facility]. There are scattered fibroglandular elements in both breasts. Current study was also evaluated with a Computer Aided Detection (CAD) system. No significant masses, calcifications, or other findings are seen in either breast. There has been no significant interval change. IMPRESSION: NEGATIVE There is no mammographic evidence of malignancy. A 1 year screening mammogram is recommended. This exam was interpreted at Station ID: [id number]. NOTE: For mammograms, a report in lay terms will be sent to the patient. Approximately 15% of breast malignancies will not be visualized mammographically. In the management of a palpable breast mass, a negative mammogram must not discourage biopsy of a clinically suspicious lesion. Electronically Signed By: Sebastian trujillo/maurice:01/01/2021 08:57:13 letter sent: Normal Exam ACR BI-RADS Category 1: Negative 3341F
== END ==
PROVIDERS: Family Provider Internal Medicine; PCP Internal Medicine; Referring Provider Internal Medicine; Visit Provider Internal Medicine
DX: Z12.31 Encounter for screening mammogram for malignant neoplasm of breast (principal); Z80.3 Family history of malignant neoplasm of breast
CPT/HCPCS: 77063; 77067

== ENCOUNTER → 2021-05-10 13:58 | Outpatient (CLI) | payer MEDICARE, OTHER, SELFPAY ==
--- NOTE | 2021-05-10 | DI.RAD.S_ITS ---
PROCEDURE: XR CERVICAL SPINE 2V OR 3V INDICATIONS: NECK PAIN W/RADICULAR SYMPTOMS, RIGHT SIDE, SEE PRIOR TECHNIQUE: 3 view(s) of the cervical spine were acquired. COMPARISON: [facility], , XR CERVICAL SPINE 2V OR 3V, 03/03/2018, 15:39. FINDINGS: Bones: No fractures or dislocations to the C7 level. The lateral masses of C1 appear intact on the odontoid view. No suspicious bony lesions. Multilevel degenerative disc and facet disease. Soft tissues: No prevertebral soft tissue swelling. IMPRESSION: Multilevel degenerative disc and facet disease. No acute fracture. No osseous lesion. If symptoms and/or clinical suspicion for pathology persist, further assessment with repeat, or advanced imaging (e.g., CT, MRI, or bone scan) may be helpful for further assessment. Dictated by: Brice Orozco M.D. on 05/10/2021 at 17:00 Approved by: Brice Orozco M.D. on 05/10/2021 at 17:00
== END ==
PROVIDERS: Family Provider Internal Medicine; PCP Internal Medicine; Referring Provider Internal Medicine; Visit Provider Internal Medicine
DX: M50.10 Cervical disc disorder with radiculopathy, unspecified cervical region (principal); M48.02 Spinal stenosis, cervical region
CPT/HCPCS: 72040

== ENCOUNTER → 2021-06-06 13:41 | Outpatient (CLI) | payer MEDICARE, OTHER, SELFPAY ==
--- NOTE | 2021-06-06 | DI.MRI.S_ITS ---
PROCEDURE: MR CERVICAL SPINE WO CON INDICATIONS: Spinal stenosis, cervical region TECHNIQUE: Noncontrast sagittal T1 spin echo and T2 fast spin echo, sagittal STIR, foraminal oblique sagittal T2 fast spin echo, and axial gradient echo or T2 fast spin echo through the cervical spine. COMPARISON: None. FINDINGS: Image quality: Excellent. Alignment and Curvature: Trace CT for retrolisthesis. Remainder the vertebral body height and alignment is maintained. Bone Marrow: Multilevel degenerative endplate changes are chronic Modic type 2/3 Spinal Cord: Visualized spinal cord has normal size and signal. No cerebellar tonsillar herniation. Paraspinous Soft Tissues: No paravertebral masses. Prevertebral soft tissues are normal in thickness. C2-C3: Normal appearance. C3-C4: Mild disc space narrowing present. Posterior disc osteophyte complex and hypertrophic uncovertebral joints results in mild central stenosis. Moderate right foraminal stenosis. No left foraminal stenosis C4-C5: Disc space narrowing with hypertrophic uncovertebral joints results in moderate bilateral foraminal stenosis. Mild central stenosis present. C5-C6: Disc space narrowing with posterior disc osteophyte complex and hypertrophic uncovertebral joints results in moderate central and bilateral foraminal stenosis. C6-C7: Disc space narrowing and hypertrophic uncovertebral joints results in mild to moderate central and moderate left foraminal stenosis. No right foraminal stenosis. C7-T1: Disc height is preserved. No central or foraminal stenosis. IMPRESSION: Multilevel degenerative disc disease and arthropathy results in varying degrees of central and foraminal stenosis including moderate central and bilateral foraminal stenosis at C5-6 Approved by: René Mullen M.D. on 06/06/2021 at 15:12
== END ==
PROVIDERS: Family Provider Internal Medicine; PCP Internal Medicine; Referring Provider Internal Medicine; Visit Provider Internal Medicine
DX: M48.02 Spinal stenosis, cervical region (principal); M50.30 Other cervical disc degeneration, unspecified cervical region; M47.812 Spondylosis without myelopathy or radiculopathy, cervical region
CPT/HCPCS: 72141

== ENCOUNTER → 2022-01-13 13:58 | Outpatient (CLI) | payer MEDICARE, OTHER, SELFPAY ==
--- NOTE | 2022-01-13 | DI.MG.S_ITS ---
BILATERAL DIGITAL SCREENING MAMMOGRAM 3D/2D WITH CAD: 01/13/2022 CLINICAL: Routine screening. Family history of breast cancer. Comparison is made to exams dated: 01/01/2021 mammogram, 12/23/2019 mammogram, and 12/16/2018 mammogram - [facility]. There are scattered areas of fibroglandular density in both breasts (category b / 25%-50% glandular tissue). Current study was also evaluated with a Computer Aided Detection (CAD) system. No significant masses, calcifications, or other findings are seen in either breast. There has been no significant interval change. IMPRESSION: NEGATIVE There is no mammographic evidence of malignancy. A 1 year screening mammogram is recommended. Based on the Tyrer Cuzick model (a risk assessment model) the patient's lifetime risk is 4.5% and her 10 year risk is 4.0%. According to the ACR, ACS, and NCCN guidelines, an annual breast MRI exam along with mammogram is recommended if the patient's lifetime risk is 20% or greater. This exam was interpreted at Station ID: [id number]. NOTE: For mammograms, a report in lay terms will be sent to the patient. Approximately 15% of breast malignancies will not be visualized mammographically. In the management of a palpable breast mass, a negative mammogram must not discourage biopsy of a clinically suspicious lesion. Electronically Signed By: Gavino padron/maurice:01/13/2022 14:30:50 letter sent: Normal Exam ACR BI-RADS Category 1: Negative 3341F
== END ==
PROVIDERS: Family Provider Internal Medicine; PCP Internal Medicine; Referring Provider Internal Medicine; Visit Provider Internal Medicine
DX: Z12.31 Encounter for screening mammogram for malignant neoplasm of breast (principal); Z80.3 Family history of malignant neoplasm of breast
CPT/HCPCS: 77063; 77067

== ENCOUNTER → 2022-10-01 11:04 | Outpatient (CLI) | payer MEDICARE, OTHER, SELFPAY ==
--- NOTE | 2022-10-01 11:07 | DI.RAD.S_ITS ---
PROCEDURE: XR KNEE RT 3V INDICATIONS: Knee pain TECHNIQUE: 3 views of the knee were acquired. COMPARISON: [facility], CR, XR KNEE LT 3V, 07/03/2017, 14:13. FINDINGS: Bones: No fractures or dislocations. No suspicious bony lesions. Mild tricompartmental periarticular osteophyte formation. Soft tissues: No joint effusion. No suspicious soft tissue calcifications. IMPRESSION: Osteoarthritis. No acute fracture. No osseous lesion. If symptoms and/or clinical suspicion for pathology persist, further assessment with repeat, or advanced imaging (e.g., CT, MRI, or bone scan) may be helpful for further assessment. Dictated by: Brice Orozco M.D. on 10/01/2022 at 14:49 Approved by: Brice Orozco M.D. on 10/01/2022 at 14:49
== END ==
PROVIDERS: Family Provider Internal Medicine; PCP Internal Medicine; Referring Provider Internal Medicine; Visit Provider Internal Medicine
DX: M17.11 Unilateral primary osteoarthritis, right knee (principal); M25.561 Pain in right knee
CPT/HCPCS: 73562

== ENCOUNTER → 2022-10-13 19:36 | Outpatient (CLI) | payer MEDICARE, OTHER, SELFPAY ==
--- NOTE | 2022-10-13 19:37 | DI.MRI.S_ITS ---
PROCEDURE: MR KNEE RT WO CON INDICATIONS: RIGHT KNEE PAIN TECHNIQUE: Noncontrast sagittal PD fast spin echo and T2 fast spin echo with fat saturation, sagittal 3-D FLASH with fat saturation; coronal T1 spin echo and PD fast spin echo with fat saturation, and axial PD fast spin echo with fat saturation through the knee. COMPARISON: [facility], MR, MR KNEE RT WO CON, 07/22/2017, 8:31. FINDINGS: Image quality: Excellent. Menisci: Linear horizontal and vertically-oriented high T2 signal intensity traverses the inner, middle, and peripheral thirds of the medial meniscal body, demonstrating superior and inferior articular surface extension, indicating complex tearing. Progressive amorphous and linear oblique high T2 signal intensity within the inner, middle, and peripheral thirds of the anterior horn and body of the lateral meniscus, demonstrating inferior articular surface extension, indicating complex tearing. Cruciate ligaments: The anterior and posterior cruciate ligaments appear intact. Medial structures: The medial collateral ligament appears intact. Visualized portions of the pes anserinus tendons appear normal. No abnormal bursal fluid. Lateral structures: The lateral collateral ligament demonstrates mild T2 signal elevation at the femoral origin. The long and short heads of the biceps femoris tendon appear intact. The popliteus tendon appears normal. Iliotibial band appears normal. There is moderate T2 signal elevation at the femoral origin of the lateral head of the gastrocnemius. Anterior structures: The quadriceps and patellar tendons appear intact. Patellar alignment is normal. No femoral trochlear dysplasia or ventral trochlear prominence. Moderate edema in the superolateral aspect of the infrapatellar fat pad. Bones and cartilage: No bone marrow contusions or fractures. Subchondral microcyst formation within the lateral patellar facet. Mild degenerative marrow edema within the lateral tibial plateau posteriorly. There is mild tricompartmental periarticular osteophyte formation. Mild articular cartilage loss diffusely overlies the weight-bearing aspects of the medial femoral condyle and medial tibial plateau. Severe articular cartilage loss overlies the medial and lateral patellar facets. Joint space: There is phy a small knee joint effusion and a trace Johnson's cyst. Normal appearing synovial plicae are incidentally noted. IMPRESSION: 1. Medial and lateral meniscal tearing. 2. Insertional tendinitis of the lateral head of the gastrocnemius at the femoral origin. 3. Partial-thickness lateral collateral ligament tear. 4. Tricompartmental osteoarthritis with associated articular cartilage loss. 5. Knee joint effusion and Johnson's cyst. 6. Findings consistent with lateral patellofemoral friction syndrome in the appropriate clinical setting. Dictated by: Brice Orozco M.D. on 10/14/2022 at 9:42 Approved by: Brice Orozco M.D. on 10/14/2022 at 9:47
== END ==
PROVIDERS: Family Provider Internal Medicine; PCP Internal Medicine; Referring Provider Internal Medicine; Visit Provider Internal Medicine
DX: S83.231A Complex tear of medial meniscus, current injury, right knee, initial encounter (principal); S83.271A Complex tear of lateral meniscus, current injury, right knee, initial encounter; M76.891 Other specified enthesopathies of right lower limb, excluding foot; S83.421A Sprain of lateral collateral ligament of right knee, initial encounter; M17.11 Unilateral primary osteoarthritis, right knee; M25.461 Effusion, right knee; M71.21 Synovial cyst of popliteal space [Baker], right knee; M25.561 Pain in right knee
CPT/HCPCS: 73721

== ENCOUNTER → 2023-01-21 14:15 | Outpatient (CLI) | payer MEDICARE, OTHER, SELFPAY ==
--- NOTE | 2023-01-21 | DI.MG.S_ITS ---
BILATERAL DIGITAL SCREENING MAMMOGRAM 3D/2D WITH CAD: 01/21/2023 CLINICAL: Routine screening. Family history of breast cancer. Comparison is made to exams dated: 01/13/2022 mammogram, 01/01/2021 mammogram, and 12/23/2019 mammogram - [facility]. There are scattered areas of fibroglandular density in both breasts (category b / 25%-50% glandular tissue). Current study was also evaluated with a Computer Aided Detection (CAD) system. No significant masses, calcifications, or other findings are seen in either breast. There has been no significant interval change. IMPRESSION: NEGATIVE There is no mammographic evidence of malignancy. A 1 year screening mammogram is recommended. Based on the Tyrer Cuzick model (a risk assessment model) the patient's lifetime risk is 4.1% and her 10 year risk is 4.1%. According to the ACR, ACS, and NCCN guidelines, an annual breast MRI exam along with mammogram is recommended if the patient's lifetime risk is 20% or greater. This exam was interpreted at Station ID: [id number]. NOTE: For mammograms, a report in lay terms will be sent to the patient. Approximately 15% of breast malignancies will not be visualized mammographically. In the management of a palpable breast mass, a negative mammogram must not discourage biopsy of a clinically suspicious lesion. Electronically Signed By: Hal christensen/maurice:01/21/2023 15:07:32 letter sent: Normal Exam ACR BI-RADS Category 1: Negative 3341F
== END ==
PROVIDERS: Family Provider Internal Medicine; PCP Internal Medicine; Referring Provider Internal Medicine; Visit Provider Internal Medicine
DX: Z12.31 Encounter for screening mammogram for malignant neoplasm of breast (principal); Z80.3 Family history of malignant neoplasm of breast
CPT/HCPCS: 77063; 77067

== ENCOUNTER → 2023-03-26 11:59 | Outpatient (CLI) | payer MEDICARE, OTHER, SELFPAY ==
--- NOTE | 2023-03-26 | DI.US.S_ITS ---
PROCEDURE: US PELVIC COMPLETE INDICATIONS: PELVIC PAIN TECHNIQUE: Real-time scanning was performed of the pelvic organs, with image documentation. Additional endovaginal scanning was necessary due to incomplete visualization of the adnexal and endometrial structures by transabdominal scanning. COMPARISON: [facility], , US PELVIC COMPLETE, 08/19/2019, 15:14. FINDINGS: Uterus: Uterus is anteverted and normal in size at 5.1 x 2.2 x 3.3 cm. The myometrium is homogeneous. The endometrium measures 2.0 mm combined thickness. There is a right anterior intramural fibroid which measures 1.4 x 0.7 x 0.9 cm, a left anterior intramural fibroid which measures 0.9 x 0.9 x 0.8 cm, and a left posterior intramural fibroid which measures 0.8 x 0.7 x 0.7 cm. Ovaries: The ovaries are surgically absent. Other: No pathologic free abdominal or pelvic fluid. IMPRESSION: 1. Multiple small uterine fibroids. 2. No abnormal thickening of the endometrium. We strive to produce accurate, complete, and clear reports of imaging services. To assist us in improving patient care, this report was composed using standard report templates and voice recognition software. Therefore, it may contain abnormal punctuation, insertions and/or omissions. Occasional wrong-word or sound-alike substitutions may occur. Though we review the report and make efforts to correct it, we do recommend that the report be read carefully in proper context to recognize any text inaccuracies. Dictated by: Blanche Ivy M.D. on 03/26/2023 at 13:18 Approved by: Blanche Ivy M.D. on 03/26/2023 at 13:19
== END ==
LOC: US 12:04
PROVIDERS: Family Provider Internal Medicine; PCP Internal Medicine; Referring Provider Internal Medicine; Visit Provider Internal Medicine
DX: D25.1 Intramural leiomyoma of uterus (principal); R10.2 Pelvic and perineal pain
CPT/HCPCS: 76830; 76856

== ENCOUNTER → 2023-05-04 12:33 | Outpatient (CLI) | payer MEDICARE, OTHER, SELFPAY ==
--- NOTE | 2023-05-04 | DI.CT.S_ITS ---
PROCEDURE: CT IVP A/P W/WO INDICATIONS: Other microscopic hematuria TECHNIQUE: Optional 5 mm thick noncontrast images acquired from the diaphragm to the symphysis pubis. After the administration of intravenous contrast, 5 mm thick images acquired from the diaphragm to the symphysis pubis after a 10-minute delay. 2 mm thick coronal and sagittal reformats were then performed of the kidneys and ureters. For radiation dose reduction, the following was used: automated exposure control, adjustment of mA and/or kV according to patient size. COMPARISON: None. FINDINGS: Image quality: Diagnostic. Kidneys and Ureters: Both kidneys are normal in size, without hydronephrosis or nephrolithiasis. No perinephric fat stranding. There is normal bilateral renal enhancement. Renal calyces appear normal in morphology when filled with contrast. Opacified portions of both ureters demonstrate normal caliber Bladder: Bladder wall thickness is normal. No calcified bladder stones. OTHER: Lower chest: Unremarkable. Liver: No solid mass. Gallbladder: Cholelithiasis without wall thickening or adjacent fat stranding to suggest acute cholecystitis. Biliary ducts: No biliary dilation. Pancreas: No ductal dilation. Spleen: Size is within normal limits. Adrenal Glands: No adrenal nodules. Stomach and Bowel: Normal colonic caliber, without significant wall thickening. Colonic diverticulosis without evidence of diverticulitis. Peritoneum: No abnormal intraperitoneal fluid. No free air. Ventral Wall: No hernia. Abdominal Nodes: No retroperitoneal or mesenteric adenopathy by size criteria. Vessels: Aorta and inferior vena cava are normal in size. PELVIS: Pelvic Organs: Unremarkable. Pelvic Nodes: No enlarged lymph nodes. Miscellaneous: Bilateral inguinal hernias containing fat, which are small. Bones: No aggressive osseous abnormality. Degenerative disc disease. IMPRESSION: No nephrolithiasis or filling defects within the opacified renal collecting system or ureters. Cholelithiasis without wall thickening or adjacent fat stranding to suggest acute cholecystitis. Colonic diverticulosis without evidence of diverticulitis. Dictated by: Deep Dang M.D. on 05/04/2023 at 15:05 Approved by: Deep Dang M.D. on 05/04/2023 at 15:08
[2023-05-04 12:59] LABS: Estimated Glomerular Filt Rate > 60 mL/min (>60)
== END ==
LOC: CT 12:35
PROVIDERS: Radiology Diagnostic Radiology; Family Provider Internal Medicine; PCP Internal Medicine; Referring Provider Internal Medicine; Visit Provider Internal Medicine
DX: K80.20 Calculus of gallbladder without cholecystitis without obstruction (principal); R31.29 Other microscopic hematuria; R10.2 Pelvic and perineal pain; K57.90 Diverticulosis of intestine, part unspecified, without perforation or abscess without bleeding
CPT/HCPCS: 36415; 74178; 82565; Q9967

== ENCOUNTER → 2024-01-26 17:37 | Outpatient (CLI) | payer MEDICARE, OTHER, SELFPAY ==
--- NOTE | 2024-01-26 17:38 | DI.MG.S_ITS ---
BILATERAL DIGITAL SCREENING MAMMOGRAM 3D/2D WITH CAD: 01/26/2024 CLINICAL: Routine screening. Family history of breast cancer. Comparison is made to exams dated: 01/21/2023 mammogram, 01/13/2022 mammogram, and 01/01/2021 mammogram - [facility]. There are scattered areas of fibroglandular density (category b / 25%-50% glandular tissue). Current study was also evaluated with a Computer Aided Detection (CAD) system. No significant masses, calcifications, or other findings are seen in either breast. There has been no significant interval change. IMPRESSION: NEGATIVE There is no mammographic evidence of malignancy. A 1 year screening mammogram is recommended. Based on the Tyrer Cuzick model (a risk assessment model) the patient's lifetime risk is 3.8% and her 10 year risk is 0.0%. According to the ACR, ACS, and NCCN guidelines, an annual breast MRI exam along with mammogram is recommended if the patient's lifetime risk is 20% or greater. This exam was interpreted at Station ID: [id number]. NOTE: For mammograms, a report in lay terms will be sent to the patient. Approximately 15% of breast malignancies will not be visualized mammographically. In the management of a palpable breast mass, a negative mammogram must not discourage biopsy of a clinically suspicious lesion. Electronically Signed By: Blanche [email or web address]:01/27/2024 12:28:37 letter sent: Normal Exam ACR BI-RADS Category 1: Negative
== END ==
PROVIDERS: Family Provider Internal Medicine; PCP Internal Medicine; Referring Provider Internal Medicine; Visit Provider Internal Medicine
DX: Z12.31 Encounter for screening mammogram for malignant neoplasm of breast (principal); Z80.3 Family history of malignant neoplasm of breast
CPT/HCPCS: 77063; 77067

== ENCOUNTER → 2024-05-02 14:09 | Outpatient (CLI) | payer MEDICARE, OTHER, SELFPAY ==
--- NOTE | 2024-05-02 14:10 | DI.RAD.S_ITS ---
PROCEDURE: XR DEXA AXIAL SKELETON INDICATIONS: OSTEOPENIA AFTER MENOPAUSE COMPARISON: 06/11/2023 FINDINGS: Lumbar Spine: Bone mineral density 0.961 g/cm2, T score -0.8, previously 0.7. Left Femoral Neck: Bone mineral density 0.788 g/cm2, T score -0.5. Left Hip: Bone mineral density 0.87 g/cm2, T score -0.4, previously 0.5. Fracture Risk Calculation (when applicable): Not reported due to osteoporosis diagnosis. (T score greater or equal to -1.0 to: NORMAL) (T score from -1.1 to -2.4: OSTEOPENIA) (T score less than or equal to -2.5: OSTEOPOROSIS) IMPRESSION: Normal bone mineralization. Follow-up guidelines as follows: Osteoporosis: Consider a repeat DEXA and Vertebral Fracture Assessment (VFA) exam in 2 years or sooner if medically necessary, to reassess this patient's status. Osteopenia: Consider a repeat DEXA in 2-3 years to reassess this patient's status, or if there is a new clinical indication. Normal: Consider a repeat DEXA in 5 years or sooner, or if there is a new clinical indication. All treatment decisions require clinical judgment and consideration of individual patient factors, including patient preferences, comorbidities, previous drug use, risk factors not captured in the FRAX model (e.g., frailty, falls, vitamin D deficiency, increased bone turnover, interval significant decline in bone density ) and possible under- or over-estimation of fracture risk by FRAX. In addition, the NOF Guide recommends that FDA-approved medical therapies be considered in postmenopausal women and men age >= 50 years with a: * Hip or vertebral (clinical or morphometric) fracture * T-score of <=-2.5 at the spine or hip * Ten-year fracture probability by FRAX of >= 3% for hip fracture or >=20% for major osteoporotic fracture. Dictated by: Deep Dang M.D. on 05/02/2024 at 16:39 Approved by: Deep Dang M.D. on 05/02/2024 at 16:40
== END ==
PROVIDERS: Family Provider Internal Medicine; PCP Family Medicine; Referring Provider Family Medicine; Visit Provider Family Medicine
DX: Z00.00 Encounter for general adult medical examination without abnormal findings (principal); M85.80 Other specified disorders of bone density and structure, unspecified site; Z78.0 Asymptomatic menopausal state
CPT/HCPCS: 77080